=== PATIENT | male | born 1970 | race Caucasian/White ===

== ENCOUNTER 2016-09-16 10:18 | Emergency (ER) | payer OTHER ==
[~2016-09-16] VITALS: Ht 175.3 cm; Wt 104.3 kg
[~2016-09-16 10:18] MED LIST: DOXY100C14 PO; GABA-585 PO; LISI10TA2 PO; LISI1TAB5 PO; OXYC30TA PO; TAMS0.4C97 PO; lisinopril
[2016-09-16] MEDS ORDERED: IV NORMAL SALINE 1000ML BAG 1,000 ML IV SCH (10:53)
[2016-09-16] MEDS ORDERED: FENTANYL PF 100 MCG/2 ML VIAL. IV PRN (11:00)
--- NOTE | 2016-09-16 11:16 | PHYS DOC ---
Past Medical History Past Medical History: Hypertension, Other Additional Past Medical Histor: kidney stones, non-compliant Past Surgical History: Cholecystectomy, Other Additional Past Surgical Histo: kidney stone removal, right leg fx Smokin Pack Per Day Alcohol Use: Occasionally Drug Use: None Adult General Chief Complaint Chief Complaint: FLANK PAIN HPI HPI Patient is a 46 year old male with history of kidney stones who presents with right flank pain for 2 days. The pain radiates to the right groin. Reports hematuria and urinary frequency with decreased output. He's had nausea without vomiting and subjective fever. He denies dysuria or change in bowel movements. He denies any injury to his back. He has previously had kidney stones requiring ureteral stents and percutaneous staghorn calculus removal at [facility]. He does not have a PCP. He does not regularly follow with a urologist. Review of Systems Review of Systems Constitutional: Reports subjective fever. Eyes: Denies change in visual acuity, redness, or eye pain. [] HENT: Denies ear pain, nasal congestion or sore throat. [] Respiratory: Denies cough or shortness of breath. [] Cardiovascular: Denies chest pain, palpitations or edema. [] GI: Denies vomiting, bloody stools or diarrhea. Reports nausea and right groin pain. : Denies dysuria. Reports hematuria and urinary frequency with decreased volume output. Reports right flank pain. Musculoskeletal: Denies back pain or joint pain. [] Integument: Denies rash or skin lesions. [] Neurologic: Denies headache, focal weakness or sensory changes. [] Endocrine: Denies polyuria or polydipsia. [] Psych: Denies anxiety or depression. [] All systems reviewed and negative unless otherwise stated in the HPI. Current Medications Current Medications Current Medications Medications (Trade) Dose Ordered Sig/Sarah Start Time Stop Time Status Last Admin Dose Admin Fentanyl Citrate 50 mcg 50 mcg PRN Q15MIN PRN 09/16/16 11:00 09/17/16 10:59 09/16/16 11:09 50 MCG Hydromorphone HCl (Dilaudid) 1 mg 1X ONCE 09/16/16 12:45 09/16/16 12:46 DC 09/16/16 12:34 1 MG Ondansetron HCl (Zofran) 4 mg 1X ONCE 09/16/16 11:30 09/16/16 11:31 DC 09/16/16 11:08 4 MG Sodium Chloride (Iv Sodium Chloride 0.9% 1000ml Bag) 1,000 ml @ 1,000 mls/hr Q1H 09/16/16 10:53 09/16/16 11:52 DC 09/16/16 11:08 1,000 MLS/HR Tamsulosin HCl (Flomax) 0.4 mg 1X ONCE 09/16/16 12:45 09/16/16 12:46 DC 09/16/16 12:33 0.4 MG Allergies Allergies Allergies Coded Allergies Type Severity Reaction Last Updated Verified ciprofloxacin Allergy Intermediate 10/04/14 No morphine Allergy Intermediate 10/04/14 No Physical Exam Physical Exam Constitutional: Well developed, well nourished, no acute distress, non-toxic appearance. [] HENT: Normocephalic, atraumatic, oropharynx moist. [] Eyes: PERRLA, EOMI, conjunctiva normal, no discharge. [] Neck: Normal range of motion, no tenderness, supple, no stridor. [] Cardiovascular: Heart rate regular rhythm, no murmur. [] Lungs & Thorax: Bilateral breath sounds clear to auscultation without wheezes, rales, or rhonchi. [] Abdomen: Bowel sounds normal, soft, right lower quadrant tenderness, no masses, no pulsatile masses. [] Skin: Warm, dry, no erythema, no rash. [] Back: No midline tenderness, right CVA tenderness. [] Extremities: No tenderness, ROM intact, no edema. 2+ DP pulses bilaterally. [] Neurologic: Alert and oriented X 3, normal motor function, normal sensory function, no focal deficits noted. [] Psychologic: Affect normal, judgement normal, mood normal. [] Current Patient Data Vital Signs Vital Signs Date Time Temp Pulse Resp B/P Pulse Ox O2 Delivery O2 Flow Rate FiO2 09/16/16 12:34 14 94 Room Air 09/16/16 11:12 90 157/91 09/16/16 10:31 97.4 97.4 Lab Values Laboratory Tests Test 09/16/16 10:55 09/16/16 12:35 White Blood Count 14.0x10^3/uL (4.0-11.0) H Red Blood Count 5.71x10^6/uL (4.30-5.70) H Hemoglobin 15.9g/dL (13.0-17.5) Hematocrit 47.4% (39.0-53.0) Mean Corpuscular Volume 83fL (79-100) Mean Corpuscular Hemoglobin 28pg (25-35) Mean Corpuscular Hemoglobin Concent 33g/dL (31-37) Red Cell Distribution Width 13.9% (11.5-14.5) Platelet Count 215x10^3/uL (140-400) Neutrophils (%) (Auto) 78% (31-73) H Lymphocytes (%) (Auto) 15% (24-48) L Monocytes (%) (Auto) 5% (0-9) Eosinophils (%) (Auto) 2% (0-3) Basophils (%) (Auto) 0% (0-3) Neutrophils # (Auto) 10.9x10^3uL (1.8-7.7) H Lymphocytes # (Auto) 2.1x10^3/uL (1.0-4.8) Monocytes # (Auto) 0.6x10^3/uL (0.0-1.1) Eosinophils # (Auto) 0.3x10^3/uL (0.0-0.7) Basophils # (Auto) 0.1x10^3/uL (0.0-0.2) Sodium Level 142mmol/L (136-145) Potassium Level 3.7mmol/L (3.5-5.1) Chloride Level 103mmol/L (98-107) Carbon Dioxide Level 28mmol/L (21-32) Anion Gap 11 (6-14) Blood Urea Nitrogen 16mg/dL (8-26) Creatinine 1.1mg/dL (0.7-1.3) Estimated GFR (Cockcroft-Gault) 72.4 BUN/Creatinine Ratio 15 (6-20) Glucose Level 169mg/dL (70-99) H Calcium Level 8.8mg/dL (8.5-10.1) Total Bilirubin 0.5mg/dL (0.2-1.0) Aspartate Amino Transferase (AST) 17U/L (15-37) Alanine Aminotransferase (ALT) 47U/L (16-63) Alkaline Phosphatase 62U/L (46-116) Total Protein 6.9g/dL (6.4-8.2) Albumin 3.5g/dL (3.4-5.0) Albumin/Globulin Ratio 1.0 (1.0-1.7) Urine Collection Type Unknown Urine Color Yellow Urine Clarity Clear Urine pH 6.5 Urine Specific [place] 1.025 Urine Protein Tracemg/dL (NEG-TRACE) Urine Glucose (UA) Negativemg/dL (NEG) Urine Ketones (Stick) Negativemg/dL (NEG) Urine Blood Moderate (NEG) Urine Nitrite Negative (NEG) Urine Bilirubin Negative (NEG) Urine Urobilinogen Dipstick 1.0mg/dL (0.2 mg/dL) Urine Leukocyte Esterase Small (NEG) Urine RBC 20-40/HPF (0-2) Urine WBC 5-10/HPF (0-4) Urine Bacteria 0/HPF (0-FEW) Urine Mucus Mod/LPF Laboratory Tests 09/16/16 10:55 Laboratory Tests 09/16/16 10:55 EKG EKG [] Radiology/Procedures Radiology/Procedures REASON: right flank pain, hx stones PROCEDURE: ABDOMEN PELVIS WO CONTRAST Indication right-sided flank pain. History of stones. Axial images through the abdomen and pelvis were obtained. The examination was tailored for the detection of renal and/or ureteral calculi. No IV or gastrointestinal contrast was administered. Note is made of a similar examination 05/02/2015. There is some volume loss in the right middle lobe. This may be incidental and reflective of atelectasis. Only a small portion of the middle lobe is visualized on this exam. Pneumonia cannot be excluded. Clinical correlation as to the likelihood of chest pathology advised. An additional finding at either lung base is not seen. The liver and spleen appear unremarkable. Clips are noted in the gallbladder fossa. There are no adrenal masses. The kidneys appear unremarkable. No renal calculi are seen. There is no significant hydronephrosis or hydroureter is seen on either side. There is, however, a calculus at the left UVJ. It measures approximately 7 mm in greatest dimension. It is, again, only minimally or nonobstructing in nature. An additional calculus is seen in the urinary bladder just below the on the UVJ measuring 9 mm. The pancreas appears unremarkable. An acute finding in the abdomen is not seen. In the pelvis no additional significant finding is seen apart from the calculi mentioned. Occasional diverticula are noted in the large bowel most pronounced in the sigmoid colon. IMPRESSION: No significant hydronephrosis or hydroureter seen on either side. Minimally or nonobstructing 7 mm calculus at the left UVJ. An additional calculus is seen in the urinary bladder measuring 9 mm In the visualized right middle lobe there is some volume loss. The clinical significance is uncertain. Course & Med Decision Making Course & Med Decision Making Pertinent Labs and Imaging studies reviewed. (See chart for details) Reevaluation at 1300: Patient reports pain is improved, down to 6/10, after IV Dilaudid. I discussed his CT results. I offered hospital admission for pain control, advising the patient that this would mean transferred to an outside hospital, as there is currently no urology coverage here. The patient prefers to be discharged home. Urine results are still pending at this time. ED course: The patient is a 46-year-old male with history of kidney stones who presents with right-sided flank pain for 2 days. Upon arrival to the emergency department, his blood pressure is markedly elevated. Patient reports that he is noncompliant with his blood pressure medications. On exam, his abdomen is soft and nonsurgical with right lower quadrant and right CVA tenderness. There are no significant laboratory of normality is on blood work. CT of the abdomen and pelvis without contrast shows a 9 mm stone in the urinary bladder and a 7 mm stone at the left UVJ without hydronephrosis or hydroureter. Urine is negative for infection. Patient was offered hospital admission by transfer for pain control. He declined hospital admission and requests to be discharged home. He is discharged with prescription for Percocet and Flomax. He is instructed to follow with urology. Return precautions were discussed. He verbalizes understanding and agrees with plan. Dragon Disclaimer Dragon Disclaimer This electronic medical record was generated, in whole or in part, using a voice recognition dictation system. Departure Departure Impression: Primary Impression: Ureteral calculus Disposition: 01 HOME, SELF-CARE Condition: IMPROVED Referrals: NAIN CHAVEZ DO Patient Instructions: Kidney Stones, [id number] Additional Instructions: You were seen for kidney stones. There is a 9 mm stone in your bladder. There is a 7 mm stone near the bladder in the left ureter. Please take the prescribed pain medication as directed. Do not drive or operate heavy machinery while taking pain medication. Please take the prescribed Flomax in order to help pass the stone. Please follow-up with the urologist listed below. Return to the emergency department if you have severe pain, fever, vomiting, or other new or concerning symptoms. Scripts Tamsulosin Hcl (Flomax)0.4 Mg Cap.er.24h1 Cap PO DAILY #30 CAP Prov:ESTEPHANIA HERRMANN 09/16/16 Ondansetron (Zofran Odt)4 Mg Tab.rapdis1 Tab SL Q8HRS #10 TAB Prov:ESTEPHANIA HERRMANN 09/16/16 Oxycodone/Apap 5-325 (Percocet 5-325 Mg Tablet)1 Each Tablet1 Tab PO PRN Q6HRS PRN PAIN #20 TAB Prov:ESTEPHANIA HERRMANN 09/16/16 ESTEPHANIA HERRMANN Sep 16, 2016 11:16
[2016-09-16 11:18] LABS: CALCIUM 8.8 mg/dL (8.5-10.1); CREATININE 1.1 mg/dL (0.7-1.3); GFR 72.4; POTASSIUM 3.7 mmol/L (3.5-5.1)
[2016-09-16 11:21] LABS: BASO # 0.1 x10^3/uL (0.0-0.2); BASO % 0 % (0-3); EOS % 2 % (0-3); HEMATOCRIT 47.4 % (39.0-53.0); HEMOGLOBIN 15.9 g/dL (13.0-17.5); LYMPH # 2.1 x10^3/uL (1.0-4.8); LYMPH % 15 % (24-48); MEAN CORPUSCULAR HEMOGLOBIN 28 pg (25-35); MEAN CORPUSCULAR HGB CONC 33 g/dL (31-37); MEAN CORPUSCULAR VOLUME 83 fL (79-100); MONO % 5 % (0-9); NEUT % 78 % (31-73); PLATELET COUNT 215 x10^3/uL (140-400); RED BLOOD COUNT 5.71 x10^6/uL (4.30-5.70); RED CELL DISTRIBUTION WIDTH 13.9 % (11.5-14.5)
[2016-09-16 11:25] LABS: ALBUMIN 3.5 g/dL (3.4-5.0); TOTAL BILIRUBIN 0.5 mg/dL (0.2-1.0); TOTAL PROTEIN 6.9 g/dL (6.4-8.2)
[2016-09-16] MEDS ORDERED: ONDANSETRON PF 4 MG/2 ML VIAL. IV ONE (11:30)
--- NOTE | 2016-09-16 11:47 | RAD ---
Indication right-sided flank pain. History of stones. Axial images through the abdomen and pelvis were obtained. The examination was tailored for the detection of renal and/or ureteral calculi. No IV or gastrointestinal contrast was administered. Note is made of a similar examination 05/02/2015. There is some volume loss in the right middle lobe. This may be incidental and reflective of atelectasis. Only a small portion of the middle lobe is visualized on this exam. Pneumonia cannot be excluded. Clinical correlation as to the likelihood of chest pathology advised. An additional finding at either lung base is not seen. The liver and spleen appear unremarkable. Clips are noted in the gallbladder fossa. There are no adrenal masses. The kidneys appear unremarkable. No renal calculi are seen. There is no significant hydronephrosis or hydroureter is seen on either side. There is, however, a calculus at the left UVJ. It measures approximately 7 mm in greatest dimension. It is, again, only minimally or nonobstructing in nature. An additional calculus is seen in the urinary bladder just below the on the UVJ measuring 9 mm. The pancreas appears unremarkable. An acute finding in the abdomen is not seen. In the pelvis no additional significant finding is seen apart from the calculi mentioned. Occasional diverticula are noted in the large bowel most pronounced in the sigmoid colon. IMPRESSION: No significant hydronephrosis or hydroureter seen on either side. Minimally or nonobstructing 7 mm calculus at the left UVJ. An additional calculus is seen in the urinary bladder measuring 9 mm In the visualized right middle lobe there is some volume loss. The clinical significance is uncertain. . PQRS Compliance Statement: One or more of the following individualized dose reduction techniques were utilized for this examination: 1. Automated exposure control 2. Adjustment of the mA and/or kV according to patient size 3. Use of iterative reconstruction technique
[2016-09-16 12:37] VITALS: BP 198/92
[2016-09-16] MEDS ORDERED: TAMSULOSIN 0.4 MG CAP.ER.24H. PO ONE (12:45)
[2016-09-16] MEDS ORDERED: HYDROMORPHONE 2 MG/ML VIAL. IV ONE (12:45)
[2016-09-16 12:50] LABS: BILIRUBIN,URINE NEGATIVE (NEG); GLUCOSE,URINE NEGATIVE (NEG); NITRITE,URINE NEGATIVE (NEG); PH,URINE 6.5
[2016-09-16 13:02] LABS: BACTERIA,URINE 0 /HPF (0-FEW); PROTEIN,URINE TRACE mg/dL (NEG-TRACE); RBC,URINE 20-40 /HPF (0-2)
[2016-09-16] MEDS ORDERED: OXYC-323 PO (13:26)
[2016-09-16] MEDS ORDERED: ONDA4TAB10 SL (13:26)
[2016-09-16] MEDS ORDERED: TAMS0.4C97 PO (13:26)
== END 2016-09-16 14:08 | disposition home or self-care (01) ==
LOC: ER 10:18
DX: N20.1 Calculus of ureter (principal); R35.0 Frequency of micturition; R11.0 Nausea; F17.200 Nicotine dependence, unspecified, uncomplicated; I10 Essential (primary) hypertension; Z90.49 Acquired absence of other specified parts of digestive tract; Z88.1 Allergy status to other antibiotic agents; Z88.5 Allergy status to narcotic agent
CPT/HCPCS: 36415; 74176; 80053; 81001; 85027; 87086; 96361; 96374; 96375; 99285; J1170; J2405; J3010; J7030

== ENCOUNTER 2017-08-30 17:41 | Emergency (ER) | payer OTHER ==
[~2017-08-30] VITALS: Ht 175.3 cm; Wt 108.9 kg
[~2017-08-30 17:41] MED LIST changes: +ONDA4TAB10 SL; +OXYC-323 PO
[2017-08-30] MEDS ORDERED: AMOX875T PO (18:17)
[2017-08-30] MEDS ORDERED: HYDROcodone/APAP 5/325MG 1 TAB TABLET PO ONE (18:30)
[2017-08-30 18:36] VITALS: BP 168/91
--- NOTE | 2017-08-30 20:04 | PHYS DOC ---
Past Medical History Past Medical History: Hypertension, Kidney Stone, Other Additional Past Medical Histor: dental caries/pain Past Surgical History: Cholecystectomy, Other Additional Past Surgical Histo: kidney stone removal, right leg fx Alcohol Use: Occasionally Drug Use: None Adult General Chief Complaint Chief Complaint: DENTAL PROBLEM HPI HPI Patient is a 47 year old male who presents with pain and swelling to a tooth on his upper left gum. The patient states this is been a long-term problem with poor dentition. He was scheduled for a full removal of all of his teeth for denture placement, but the oral surgeon refused pull them because he was having elevated blood pressure. He is supposed to return to the clinic when his blood pressure is under control. He states that the pain and swelling have been increasing considerably over the past day. Review of Systems Review of Systems Constitutional: Denies fever or chills [] Eyes: Denies change in visual acuity, redness, or eye pain [] HENT: See history of present illness Respiratory: Denies cough or shortness of breath [] Cardiovascular: No additional information not addressed in HPI [] Neurologic: Denies headache, focal weakness or sensory changes [] Endocrine: Denies polyuria or polydipsia [] All other systems were reviewed and found to be within normal limits, except as documented in this note. Current Medications Current Medications Current Medications Medications (Trade) Dose Ordered Sig/Sarah Start Time Stop Time Status Last Admin Dose Admin Acetaminophen/ Hydrocodone Bitart (Lortab 5/325) 2 tab 1X ONCE 08/30/17 18:30 08/30/17 18:31 DC 08/30/17 18:34 2 TAB Allergies Allergies Allergies Coded Allergies Type Severity Reaction Last Updated Verified ciprofloxacin Allergy Intermediate 10/04/14 No morphine Allergy Intermediate 10/04/14 No Physical Exam Physical Exam Constitutional: Well developed, well nourished, no acute distress, non-toxic appearance. [] HENT: Normocephalic, atraumatic, bilateral external ears normal, oropharynx moist, no oral exudates, there are multiple fractured teeth with dental caries noted to the patient's upper and lower gums, the tooth that the patient is pointing to does have extensive disease and erythema to the gumline, I do not see a pus pool Eyes: PERRLA, EOMI, conjunctiva normal, no discharge. [] Neck: Normal range of motion, no tenderness, supple, no stridor. [] Cardiovascular:Heart rate regular rhythm, no murmur [] Lungs & Thorax: Bilateral breath sounds clear to auscultation [] Neurologic: Alert and oriented X 3, normal motor function, normal sensory function, no focal deficits noted. [] Psychologic: Affect normal, judgement normal, mood normal. [] Current Patient Data Vital Signs Vital Signs Date Time Temp Pulse Resp B/P (MAP) Pulse Ox O2 Delivery O2 Flow Rate FiO2 08/30/17 18:36 90 18 168/91 (116) 98 Room Air 08/30/17 18:07 98.0 98.0 EKG EKG [] Radiology/Procedures Radiology/Procedures [] Course & Med Decision Making Course & Med Decision Making Pertinent Labs and Imaging studies reviewed. (See chart for details) []1. Dental Abscess The patient is to call his oral surgeon is to reschedule the appointment for removal of his teeth. He was given a prescription for an antibiotic. He is to take that antibiotic until it is finished. He may use ibuprofen or Tylenol for pain. He was given 1 pain pill in the emergency department and is calling his brother for a ride home. He was counseled to not drive or operate heavy machinery while under the influence of this pain medication. Dragon Disclaimer Dragon Disclaimer This electronic medical record was generated, in whole or in part, using a voice recognition dictation system. Departure Departure Impression: Primary Impression: Dental abscess Disposition: 01 HOME, SELF-CARE Condition: STABLE Patient Instructions: Dental Abscess Additional Instructions: Please call your oral surgeon's office to have those teeth removed. Take amoxicillin as prescribed. He may also use salt water gargles. Return to the ED if worsening. Scripts Amoxicillin (AMOXICILLIN) 875 Mg Tablet 1 TAB PO BID, #20 TAB Prov: KATHLEEN PLASENCIA APRN 08/30/17 KATHLEEN PLASENCIA APRN Aug 30, 2017 20:04
== END 2017-08-30 18:37 | disposition home or self-care (01) ==
LOC: ER 17:41
DX: K04.7 Periapical abscess without sinus (principal); I10 Essential (primary) hypertension; Z88.1 Allergy status to other antibiotic agents; Z88.5 Allergy status to narcotic agent
CPT/HCPCS: 99283

== ENCOUNTER 2017-09-04 07:48 | Emergency (ER) | payer OTHER ==
[2017-09-04] MEDS: IPRATRPIUM/ALBUTEROL 0.5/2.5MG 3 ML NEBU. NEB (08:39)
[2017-09-04] MEDS: IV NORMAL SALINE 1000ML BAG 1,000 ML IV (08:41)
[2017-09-04 08:47] LABS: ADD MAN DIFF? NO
[2017-09-04 08:55] LABS: BASO % 0 % (0-3); EOS % 0 % (0-3); HEMATOCRIT 46.6 % (39.0-53.0); HEMOGLOBIN 15.4 g/dL (13.0-17.5); LYMPH # 1.7 x10^3/uL (1.0-4.8); LYMPH % 23 % (24-48); MEAN CORPUSCULAR HEMOGLOBIN 28 pg (25-35); MEAN CORPUSCULAR HGB CONC 33 g/dL (31-37); MEAN CORPUSCULAR VOLUME 84 fL (79-100); MONO % 11 % (0-9); NEUT % 65 % (31-73); PLATELET COUNT 210 x10^3/uL (140-400); RED BLOOD COUNT 5.58 x10^6/uL (4.30-5.70); RED CELL DISTRIBUTION WIDTH 14.2 % (11.5-14.5); WHITE BLOOD COUNT 7.5 x10^3/uL (4.0-11.0)
[2017-09-04] MEDS: KETOROLAC 30 MG/ML INJ. IV (08:57)
[2017-09-04] MEDS: ONDANSETRON PF 4 MG/2 ML VIAL. IV (08:58)
[2017-09-04] MEDS ORDERED: fentaNYL PF VIAL 100 MCG/2 ML VIAL IV (09:30)
== END 2017-09-04 09:36 | disposition left against medical advice (07) ==
LOC: ER 07:48
DX: R10.32 Left lower quadrant pain (principal); J06.9 Acute upper respiratory infection, unspecified; I10 Essential (primary) hypertension; Z87.442 Personal history of urinary calculi; Z88.1 Allergy status to other antibiotic agents; Z90.49 Acquired absence of other specified parts of digestive tract; Z88.5 Allergy status to narcotic agent; Z88.6 Allergy status to analgesic agent
CPT/HCPCS: 71020; 85025; 93005; 94640; 96361; 96374; 96375; 99285-25; J1885; J2405; J7030; J7620